=== PATIENT | female | born 1965 | race Caucasian/White ===

== ENCOUNTER → 2017-05-04 | Outpatient (CLI) | payer MEDICARE | END | disposition home or self-care (01) | LOC: CFH 12:53 | PROVIDERS: ATTEND Internal Medicine | DX: I07.1 Rheumatic tricuspid insufficiency (principal); I38 Endocarditis, valve unspecified; I10 Essential (primary) hypertension; E78.5 Hyperlipidemia, unspecified; R73.03 Prediabetes; Z87.891 Personal history of nicotine dependence | CPT/HCPCS: 93306 ==

== ENCOUNTER 2020-07-13 11:42 | Emergency (ER) | payer MEDICARE ==
[~2020-07-13] VITALS: Ht 170.2 cm; Wt 71.5 kg
[2020-07-13 12:46] LABS: BASOPHILS % (AUTO) 1 % (0-1); EOSINOPHILS % (AUTO) 1 % (1-7); LYMPHOCYTES % (AUTO) 23 % (22-44); MEAN CORPUSCULAR HEMOGLOBIN 31.6 pg (27.0-34.8); MEAN CORPUSCULAR HGB CONC 34.3 g/dL (32.4-35.8); MONOCYTES % (AUTO) 8 % (2-9); NEUTROPHILS % (AUTO) 69 % (42-75); PLATELET COUNT 284 x10^3/uL (130-400); RED BLOOD COUNT 4.75 x10^6/uL (3.82-5.3); RED CELL DISTRIBUTION WIDTH 13.4 % (9.6-15.2)
[2020-07-13 12:47] LABS: MD NO
[2020-07-13 12:57] LABS: ALBUMIN 4.7 g/dL (3.4-5.0); ANION GAP 15 mmol/L (5-15); CALCIUM 10.3 mg/dL (8.5-10.1); CHLORIDE 100 mmol/L (98-107)
[2020-07-13 13:00] LABS: ALANINE AMINOTRANSFERASE 56 U/L (12-78); ALKALINE PHOSPHATASE 64 U/L (45-117); BILIRUBIN,TOTAL 0.8 mg/dL (0.2-1.0); CREATININE 0.84 mg/dL (0.55-1.02); TOTAL PROTEIN 7.9 g/dL (6.4-8.2)
[2020-07-13 13:48] VITALS: BP 175/69
--- NOTE | 2020-07-13 14:18 | NUR ---
AIRCRAFT QUALITY CONTROL INSPECTOR: PT TO ROOM FROM LOBBY VIA W/C
[2020-07-13] MEDS ORDERED: MAGN296S67 PO (14:34)
[2020-07-13] MEDS ORDERED: METO-99 PO (14:37)
[2020-07-13] MEDS ORDERED: METF500T17 PO (14:43)
[2020-07-13] MEDS ORDERED: ASPI81TA45 PO (14:43)
[2020-07-13] MEDS ORDERED: ATOR40TA PO (14:44)
[2020-07-13] MEDS ORDERED: LISI-170 PO (14:44)
--- NOTE | 2020-07-13 15:12 | NUR ---
[facility] ENEMA GIVEN. PT SITTING ON COMMODE.
[2020-07-13] MEDS ORDERED: ONDANSETRON ODT 4 MG ONE (15:33)
[2020-07-13] MEDS ORDERED: ONDANSETRON ODT 4 MG PO ONE (16:00)
--- NOTE | 2020-07-13 16:49 | NUR ---
PT HAD GOOD BM RESULTS WITH ENEMA. DR. CAPELLAN NOTIFIED.
--- NOTE | 2020-07-13 18:16 | NUR ---
Patient given discharge instructions and they have confirmed that they understand the instructions. Patient ambulatory with steady gait.
== END 2020-07-13 18:17 | disposition home or self-care (01) ==
LOC: ED 12:12
DX: K59.00 Constipation, unspecified (principal); I10 Essential (primary) hypertension; E11.9 Type 2 diabetes mellitus without complications; E78.5 Hyperlipidemia, unspecified; R94.31 Abnormal electrocardiogram [ECG] [EKG]
CPT/HCPCS: 36415; 74021; 80053; 85025; 93005; 99285; Q0162

== ENCOUNTER 2020-08-04 23:55 | Observation (INO) | payer MEDICARE ==
[~2020-08-04] VITALS: Ht 170.2 cm; Wt 75.0 kg
[~2020-08-04 23:55] MED LIST: ASPI81TA45 PO; ATOR40TA PO; LISI-170 PO; MAGN296S67 PO; METF500T17 PO; METO-99 PO
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
[2020-08-05 00:02] VITALS: BP 165/79
[2020-08-05 00:37] LABS: BASOPHILS % (AUTO) 1 % (0-1); EOSINOPHILS % (AUTO) 2 % (1-7); LYMPHOCYTES % (AUTO) 21 % (22-44); MD NO; MEAN CORPUSCULAR HEMOGLOBIN 31.1 pg (27.0-34.8); MEAN CORPUSCULAR HGB CONC 34.6 g/dL (32.4-35.8); MEAN PLATELET VOLUME 7.2 fL (7.4-10.4); MONOCYTES % (AUTO) 6 % (2-9); NEUTROPHILS % (AUTO) 71 % (42-75); PLATELET COUNT 243 x10^3/uL (130-400); RED BLOOD COUNT 4.29 x10^6/uL (3.82-5.3); RED CELL DISTRIBUTION WIDTH 13.2 % (9.6-15.2)
[2020-08-05 00:48] LABS: ALBUMIN 4.3 g/dL (3.4-5.0); ANION GAP 12 mmol/L (5-15); CALCIUM 9.8 mg/dL (8.5-10.1); CHLORIDE 96 mmol/L (98-107); CREATININE 1.44 mg/dL (0.55-1.02); SALICYLATE LEVEL 3.1 mg/dL (2.8-20.0)
[2020-08-05] MEDS ORDERED: POTASSIUM CHLORIDE 20 MEQ TAB.ER.PRT PO ONE (01:00)
[2020-08-05 01:12] LABS: AMPHETAMINE SCREEN, URINE Negative (Negative); BARBITURATE SCREEN, URINE Negative (Negative); BENZODIAZEPINE SCREEN, URINE Negative (Negative); CANNABINOID SCREEN, URINE Positive (Negative); COCAINE SCREEN, URINE Negative (Negative); METHADONE SCREEN, URINE Negative (Negative); OPIATE SCREEN, URINE Negative (Negative)
--- NOTE | 2020-08-05 01:30 | NUR ---
REPORT FROM TIKA PRADO
--- NOTE | 2020-08-05 01:30 | NUR ---
Patient moved from room 40 to room 03. Patient sitting upright in bed talking to herself. Provided water. Patient has no complaints. Room secured, belongings locked in cabinet. Sitter outside. Report given to JOHAN Shah. Patient care transferred. Addendum: 08/05/20 at 0518 by [email or web address] Belongings on the back of [facility] when transported to room 03.
--- NOTE | 2020-08-05 02:30 | NUR ---
TELEPSYCH MD ASSESSING PATIENT
--- NOTE | 2020-08-05 03:03 | NUR ---
PROVIDED WITH FOOD/WATER UPDATED ON ESTIMATED POC SITTER WITHIN DIRECT LINE OF SITE
--- NOTE | 2020-08-05 03:10 | NUR ---
3E with no female beds at this time per Amrit Robert. Patient with Medicare insurance so therefore packet faxed to [facility], [facility], [facility], [facility], and [facility].
[2020-08-05] MEDS ORDERED: POTASSIUM CHLORIDE 20 MEQ TAB.ER.PRT ONE (04:04)
[2020-08-05] MEDS ORDERED: IBUPROFEN 600 MG TABLET ONE (04:12)
--- NOTE | 2020-08-05 05:06 | NUR ---
Report from JOHAN Shah. Pt sleeping in view of sitter, visible chest rise and fall. Pt has slippers, robe and jacket. 1 pt belonginng bag created and placed in sch locker.
== END 2020-08-05 05:40 | disposition home or self-care (01) ==
LOC: ED 08-05 02:52 → EDIP 08-05 03:11 → INTOOBSV 08-05 03:25 → EDIP 08-05 03:25 → UNDOADMOB 08-05 03:25 → UNDODISOB 08-05 05:40
PROVIDERS: ADMIT Student in an Organized Health Care Education/Training Program; ATTEND Student in an Organized Health Care Education/Training Program
DX: F23 Brief psychotic disorder (principal); F30.2 Manic episode, severe with psychotic symptoms; I10 Essential (primary) hypertension; E11.9 Type 2 diabetes mellitus without complications; E78.5 Hyperlipidemia, unspecified; E87.6 Hypokalemia; G90.50 Complex regional pain syndrome I, unspecified; N28.9 Disorder of kidney and ureter, unspecified; Z79.899 Other long term (current) drug therapy
CPT/HCPCS: 36415; 80048; 80299; 80307; 80320; 80329; 82040; 85025; 99284; G0378; G0480

== ENCOUNTER → 2020-10-17 | Outpatient (CLI) | payer MEDICARE ==
[~2020-10-17] MED LIST changes: +OMNIPAQUE 350 MG/ML, 150 ML BOTTLE ONE
== END | disposition home or self-care (01) ==
LOC: CFH 09:12
PROVIDERS: ATTEND Surgery Vascular Surgery
DX: I71.4 Abdominal aortic aneurysm, without rupture (principal); I70.1 Atherosclerosis of renal artery; I70.209 Unspecified atherosclerosis of native arteries of extremities, unspecified extremity; I70.0 Atherosclerosis of aorta
CPT/HCPCS: 75635; Q9967

== ENCOUNTER 2020-10-31 08:46 | Emergency (ER) | payer MEDICARE ==
[~2020-10-31] VITALS: Ht 170.2 cm; Wt 58.0 kg
[~2020-10-31 08:46] MED LIST changes: -OMNIPAQUE 350 MG/ML, 150 ML BOTTLE ONE
[2020-10-31 08:55] VITALS: BP 158/92
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
--- NOTE | 2020-10-31 09:39 | NUR ---
BREAKFAST TRAY PROVIDED, PATIENT SITTING IN GURNEY MUMBLING TO SELF, NADN, CALL LIGHT WITHIN REACH.
--- NOTE | 2020-10-31 10:04 | NUR ---
INFORMED PATIENT THAT CURTAIN NEEDS TO REMAIN OPEN, PATIENT CLOSED CURTAIN IN THIS RN'S FACE, EDUCATED PATIENT THAT WE NEED TO MAKE SURE SHE IS SAFE AND KEEP THE CURTAIN OPEN. PATIENT AGGRESSIVELY PULLED OPEN THE CURTAIN AND STATED "FINE KEEP THE FUCKING THING OPEN, EVERYONE IS NOSY, YOU AREN'T GOING TO DO ANYTHING TO HELP ME ANYWAYS, I'M IN FUCKING PAIN 24 HOURS A DAY." SITTER IN LINE OF SIGHT.
--- NOTE | 2020-10-31 10:16 | NUR ---
ERMD AT BEDSIDE FOR EVALUATION.
[2020-10-31] MEDS ORDERED: HALOPERIDOL 5 MG/ML IM STA (10:19)
[2020-10-31] MEDS ORDERED: DIPHENHYDRAMINE 50 MG/ML, 1ML ONE (10:24)
[2020-10-31] MEDS ORDERED: HALOPERIDOL 5 MG/ML ONE (10:24)
[2020-10-31] MEDS ORDERED: LORazepam 2 MG/ML, 1ML ONE (10:25)
[2020-10-31] MEDS ORDERED: LORazepam 2 MG/ML, 1ML IM ONE (10:30)
[2020-10-31] MEDS ORDERED: DIPHENHYDRAMINE 50 MG/ML, 1ML IM ONE (10:30)
--- NOTE | 2020-10-31 10:30 | NUR ---
PATIENT BECOMING AGITATED, SECURITY CALLED. PATIENT MEDICATED PER eMAR, SEARCH PLANNER AT BEDSIDE, LABS DRAWN, PATIENT GOING BETWEEN BEING TEARFUL AND AGITATION. PATIENT NOW ON L2K, SITTER IN LINE OF SIGHT.
[2020-10-31 10:35] LABS: BASOPHILS % (AUTO) 1 % (0-1); EOSINOPHILS % (AUTO) 1 % (1-7); LYMPHOCYTES % (AUTO) 15 % (22-44); MEAN CORPUSCULAR HEMOGLOBIN 31.7 pg (27.0-34.8); MEAN CORPUSCULAR HGB CONC 33.5 g/dL (32.4-35.8); MEAN PLATELET VOLUME 7.5 fL (7.4-10.4); MONOCYTES % (AUTO) 6 % (2-9); NEUTROPHILS % (AUTO) 78 % (42-75); PLATELET COUNT 246 x10^3/uL (130-400); RED BLOOD COUNT 4.19 x10^6/uL (3.82-5.3); RED CELL DISTRIBUTION WIDTH 13.3 % (9.6-15.2)
--- NOTE | 2020-10-31 10:38 | NUR ---
KAREN PSYCH MECHANICAL SOUND TECHNICIAN AT BEDSIDE FOR EVALUATION.
[2020-10-31 10:46] LABS: ALANINE AMINOTRANSFERASE 63 U/L (12-78); ALBUMIN 4.1 g/dL (3.4-5.0); ANION GAP 7 mmol/L (5-15); CALCIUM 9.1 mg/dL (8.5-10.1); CHLORIDE 107 mmol/L (98-107); SALICYLATE LEVEL 3.6 mg/dL (2.8-20.0)
[2020-10-31 10:48] LABS: ALKALINE PHOSPHATASE 61 U/L (45-117); BILIRUBIN,TOTAL 0.9 mg/dL (0.2-1.0); TOTAL PROTEIN 7.1 g/dL (6.4-8.2)
--- NOTE | 2020-10-31 11:20 | NUR ---
PATIENT RESTING IN GURNEY WITH EYES CLOSED, RESP EVEN AND UNLABORED, SUICIDE PRECAUTIONS IN PLACE, SITTER IN LINE OF SIGHT.
--- NOTE | 2020-10-31 11:23 | NUR ---
HOSPITAL BED ORDERED.
--- NOTE | 2020-10-31 12:12 | NUR ---
COVID SWAB COLLECTED FOR BHU AND WALKED TO LAB.
--- NOTE | 2020-10-31 12:35 | NUR ---
Safety meal tray provided.
--- NOTE | 2020-10-31 13:38 | NUR ---
PATIENT RESTING IN GURNEY WITH EYES CLOSED, RESP EVEN AND UNLABORED, SUICIDE PRECAUTIONS IN PLACE, SITTER IN LINE OF SIGHT.
[2020-10-31] MEDS ORDERED: POTASSIUM CHLORIDE 20 MEQ TAB.ER.PRT PO ONE (14:30)
--- NOTE | 2020-10-31 15:01 | NUR ---
PATIENT MOVED ONTO HOSPITAL BED, URINE COLLECTED AND SENT TO LAB. PATIENT EATING LUNCH, NADN, SITTER IN LINE OF SIGHT.
[2020-10-31 15:34] LABS: AMPHETAMINE SCREEN, URINE Negative (Negative); BARBITURATE SCREEN, URINE Negative (Negative); BENZODIAZEPINE SCREEN, URINE Negative (Negative); CANNABINOID SCREEN, URINE Positive (Negative); COCAINE SCREEN, URINE Negative (Negative); METHADONE SCREEN, URINE Negative (Negative); OPIATE SCREEN, URINE Negative (Negative)
--- NOTE | 2020-10-31 16:00 | NUR ---
LATE ENTRY DUE TO PATIENT CARE: REPORT GIVEN TO JOHAN ARZATE FOR TRANSFER OF PATIENT CARE TO [facility].
[2020-10-31] MEDS ORDERED: POTASSIUM CHLORIDE 20 MEQ TAB.ER.PRT ONE (16:20)
--- NOTE | 2020-10-31 16:42 | NUR ---
PATIENT TRANSFERRED TO BHU VIA WHEELCHAIR IN STABLE CONDITION WITH AQUACULTURAL WORKER SUPERVISOR, ALL PATIENT BELONGINGS TAKEN TO FLOOR WITH PATIENT.
[2020-11-01] MEDS ORDERED: AMOX1TAB12 BC (09:09)
[2020-11-01] MEDS ORDERED: [UNRECOGNIZED DRUG - CODE] PO (09:09)
[2020-11-01] MEDS ORDERED: ALBU0.63 NEB (09:09)
[2020-11-01] MEDS ORDERED: EZET10TA70 PO (09:09)
[2020-11-01] MEDS ORDERED: AMLO-150 PO (09:12)
[2020-11-01] MEDS ORDERED: HYDR25TA6 PO (09:12)
[2020-11-01] MEDS ORDERED: DULO30CA2 PO (09:12)
== END 2020-10-31 16:44 ==
LOC: ED 10:17 → UNDOADMIN 13:54 → EDIP 13:54 → ED 16:38
DX: F22 Delusional disorders (principal); Z20.822 Contact with and (suspected) exposure to COVID-19; F28 Other psychotic disorder not due to a substance or known physiological condition; R00.0 Tachycardia, unspecified; I10 Essential (primary) hypertension; E11.9 Type 2 diabetes mellitus without complications
CPT/HCPCS: 36415; 80053; 80299; 80307; 80320; 80329; 85025; 87426; 96372; 99285; J1200; J1630; J2060; 99284; G0480

== ENCOUNTER 2020-10-31 14:04 | Inpatient (IN) | payer MEDICARE ==
[~2020-10-31] VITALS: Ht 170.2 cm; Wt 58.7 kg
[2020-10-31] MEDS ORDERED: BISACODYL 10 MG SUPP PR PRN (16:00)
[2020-10-31] MEDS ORDERED: POLYETHYLENE GLYCOL 17 GM PACKET PO PRN (16:00)
[2020-10-31] MEDS ORDERED: PLEASE ENTER HEIGHT AND WEIGHT MC SCH (17:00)
[2020-10-31] MEDS ORDERED: DIPHENHYDRAMINE 25 MG CAPSULE PO PRN (17:00)
[2020-10-31 17:27] LABS: MICROSCOPIC AUTO
[2020-10-31] MEDS ORDERED: HALOPERIDOL 5 MG TABLET ONE (17:28)
[2020-10-31] MEDS: HALOPERIDOL 5 MG TABLET PO PRN (17:37)
[2020-10-31 17:39] VITALS: BP 142/87
[2020-10-31 19:25] VITALS: BP 150/83
[2020-11-01] MEDS: ACETAMINOPHEN 325 MG TABLET PO PRN ×2 (02:19→15:09)
[2020-11-01 07:08] LABS: CHOL/HDL RATIO 3.3; FREE T4 (FREE THYROXINE) 1.13 ng/dL (0.76-1.46)
[2020-11-01 07:49] VITALS: BP 165/82
[2020-11-01] MEDS ORDERED: EZET10TA70 PO (09:09)
[2020-11-01] MEDS ORDERED: ALBU0.63 NEB (09:09)
[2020-11-01] MEDS ORDERED: [UNRECOGNIZED DRUG - CODE] PO (09:09)
[2020-11-01] MEDS ORDERED: AMOX1TAB12 BC (09:09)
[2020-11-01] MEDS ORDERED: DULO30CA2 PO (09:12)
[2020-11-01] MEDS ORDERED: AMLO-150 PO (09:12)
[2020-11-01] MEDS ORDERED: HYDR25TA6 PO (09:12)
[2020-11-01 09:24] LABS: BASOPHILS % (AUTO) 1 % (0-1); EOSINOPHILS % (AUTO) 2 % (1-7); LYMPHOCYTES % (AUTO) 30 % (22-44); MEAN CORPUSCULAR HEMOGLOBIN 31.9 pg (27.0-34.8); MEAN CORPUSCULAR HGB CONC 33.3 g/dL (32.4-35.8); MEAN PLATELET VOLUME 7.7 fL (7.4-10.4); MONOCYTES % (AUTO) 7 % (2-9); NEUTROPHILS % (AUTO) 60 % (42-75); PLATELET COUNT 233 x10^3/uL (130-400); RED BLOOD COUNT 4.39 x10^6/uL (3.82-5.3); RED CELL DISTRIBUTION WIDTH 13.5 % (9.6-15.2)
[2020-11-01] MEDS: AMOXICILLIN/CLAV 875-125MG TABLET PO SCH ×2 (09:54→20:41)
[2020-11-01] MEDS: ASPIRIN 81 MG TABLET EC PO SCH (09:54)
[2020-11-01] MEDS: LISINOPRIL 20 MG TABLET PO SCH (09:54)
[2020-11-01] MEDS: ONDANSETRON ODT 4 MG PO PRN (10:22)
[2020-11-01] MEDS: CHLORHEXIDINE 15 ML UDC MM SCH ×3 (10:26→20:40)
[2020-11-01 10:40] LABS: ANION GAP 3 mmol/L (5-15); CALCIUM 9.2 mg/dL (8.5-10.1); CHLORIDE 107 mmol/L (98-107); CREATININE 0.71 mg/dL (0.55-1.02)
[2020-11-01] MEDS ORDERED: POTASSIUM CHLORIDE 20 MEQ TAB.ER.PRT PO ONE (12:00)
[2020-11-01] MEDS: metFORMIN 500 MG TABLET PO SCH (16:32)
[2020-11-01 18:53] VITALS: BP 144/69
[2020-11-01] MEDS ORDERED: METOPROLOL TARTRATE 50 MG TAB ONE (20:31)
[2020-11-01] MEDS: CARBAMAZEPINE XR 200 MG TABLET PO SCH (20:41)
[2020-11-01] MEDS: RISPERIDONE 0.5 MG TABLET PO SCH (20:41)
[2020-11-01] MEDS: METOPROLOL TARTRATE 100 MG TAB PO SCH (20:41)
[2020-11-01] MEDS: EZETIMIBE 10 MG TABLET PO SCH (20:41)
[2020-11-02 07:10] VITALS: BP 155/68
[2020-11-02] MEDS: METOPROLOL TARTRATE 100 MG TAB PO SCH ×2 (09:00→21:18)
[2020-11-02] MEDS ORDERED: METOPROLOL TARTRATE 50 MG TAB ONE (09:09)
[2020-11-02] MEDS: AMOXICILLIN/CLAV 875-125MG TABLET PO SCH ×2 (09:14→21:19)
[2020-11-02] MEDS: metFORMIN 500 MG TABLET PO SCH ×2 (09:14→17:16)
[2020-11-02] MEDS: ASPIRIN 81 MG TABLET EC PO SCH (09:15)
[2020-11-02] MEDS: LISINOPRIL 20 MG TABLET PO SCH (09:16)
[2020-11-02] MEDS: CARBAMAZEPINE XR 200 MG TABLET PO SCH ×2 (09:17→21:19)
[2020-11-02] MEDS: RISPERIDONE 0.5 MG TABLET PO SCH ×2 (09:17→21:19)
[2020-11-02] MEDS: CHLORHEXIDINE 15 ML UDC MM SCH ×3 (09:18→21:18)
[2020-11-02 19:25] VITALS: BP 131/76
[2020-11-02] MEDS: EZETIMIBE 10 MG TABLET PO SCH (21:19)
[2020-11-03 07:35] VITALS: BP 144/72
[2020-11-03] MEDS ORDERED: METOPROLOL TARTRATE 50 MG TAB ONE (08:16)
[2020-11-03] MEDS: METOPROLOL TARTRATE 100 MG TAB PO SCH ×2 (09:00→20:05)
[2020-11-03] MEDS: CARBAMAZEPINE XR 200 MG TABLET PO SCH ×2 (09:13→20:06)
[2020-11-03] MEDS: AMOXICILLIN/CLAV 875-125MG TABLET PO SCH ×2 (09:13→20:05)
[2020-11-03] MEDS: RISPERIDONE 0.5 MG TABLET PO SCH ×2 (09:13→20:06)
[2020-11-03] MEDS: ASPIRIN 81 MG TABLET EC PO SCH (09:13)
[2020-11-03] MEDS: LISINOPRIL 20 MG TABLET PO SCH (09:13)
[2020-11-03] MEDS: metFORMIN 500 MG TABLET PO SCH ×2 (09:13→17:06)
[2020-11-03] MEDS: CHLORHEXIDINE 15 ML UDC MM SCH ×3 (09:14→20:08)
[2020-11-03] MEDS ORDERED: NICOTINE 14MG/24 HR PATCH.TD24 ONE (15:21)
[2020-11-03] MEDS: NICOTINE 14MG/24 HR PATCH.TD24 TD SCH (15:25)
[2020-11-03 19:24] VITALS: BP 138/82
[2020-11-03] MEDS: EZETIMIBE 10 MG TABLET PO SCH (20:05)
[2020-11-04 07:44] VITALS: BP 143/81
[2020-11-04] MEDS: LISINOPRIL 20 MG TABLET PO SCH (08:54)
[2020-11-04] MEDS: AMOXICILLIN/CLAV 875-125MG TABLET PO SCH ×2 (08:54→20:19)
[2020-11-04] MEDS: metFORMIN 500 MG TABLET PO SCH ×2 (08:54→16:46)
[2020-11-04] MEDS: METOPROLOL TARTRATE 100 MG TAB PO SCH ×2 (08:54→20:19)
[2020-11-04] MEDS: CARBAMAZEPINE XR 200 MG TABLET PO SCH ×2 (08:54→20:19)
[2020-11-04] MEDS: ASPIRIN 81 MG TABLET EC PO SCH (08:55)
[2020-11-04] MEDS: RISPERIDONE 0.5 MG TABLET PO SCH ×2 (08:55→20:19)
[2020-11-04] MEDS: CHLORHEXIDINE 15 ML UDC MM SCH ×3 (09:00→20:19)
[2020-11-04] MEDS: NICOTINE 14MG/24 HR PATCH.TD24 TD SCH (15:05)
[2020-11-04 19:25] VITALS: BP 142/81
[2020-11-04] MEDS: EZETIMIBE 10 MG TABLET PO SCH (20:19)
[2020-11-05] MEDS: DOCUSATE 100 MG CAPSULE PO PRN ×2 (04:21→08:21)
[2020-11-05 07:25] VITALS: BP 130/82
[2020-11-05] MEDS: METOPROLOL TARTRATE 100 MG TAB PO SCH ×2 (08:20→20:38)
[2020-11-05] MEDS: CARBAMAZEPINE XR 200 MG TABLET PO SCH ×2 (08:20→20:37)
[2020-11-05] MEDS: ASPIRIN 81 MG TABLET EC PO SCH (08:20)
[2020-11-05] MEDS: LISINOPRIL 20 MG TABLET PO SCH (08:21)
[2020-11-05] MEDS: RISPERIDONE 0.5 MG TABLET PO SCH ×2 (08:21→20:39)
[2020-11-05] MEDS: metFORMIN 500 MG TABLET PO SCH ×2 (08:21→18:28)
[2020-11-05] MEDS: NICOTINE 14MG/24 HR PATCH.TD24 TD SCH (08:21)
[2020-11-05] MEDS: AMOXICILLIN/CLAV 875-125MG TABLET PO SCH ×2 (08:21→20:38)
[2020-11-05] MEDS: CHLORHEXIDINE 15 ML UDC MM SCH ×3 (08:21→20:37)
[2020-11-05 19:27] VITALS: BP 144/67
[2020-11-05 19:42] VITALS: BP 132/79
[2020-11-05] MEDS: EZETIMIBE 10 MG TABLET PO SCH (20:37)
[2020-11-06 07:25] VITALS: BP 154/79
[2020-11-06] MEDS: CARBAMAZEPINE XR 200 MG TABLET PO SCH ×2 (08:43→20:34)
[2020-11-06] MEDS: ASPIRIN 81 MG TABLET EC PO SCH (08:43)
[2020-11-06] MEDS: LISINOPRIL 20 MG TABLET PO SCH (08:43)
[2020-11-06] MEDS: metFORMIN 500 MG TABLET PO SCH ×2 (08:43→16:46)
[2020-11-06] MEDS: AMOXICILLIN/CLAV 875-125MG TABLET PO SCH ×2 (08:43→20:34)
[2020-11-06] MEDS: RISPERIDONE 0.5 MG TABLET PO SCH ×2 (08:43→20:34)
[2020-11-06] MEDS: METOPROLOL TARTRATE 100 MG TAB PO SCH ×2 (08:43→20:33)
[2020-11-06] MEDS: NICOTINE 14MG/24 HR PATCH.TD24 TD SCH (08:44)
[2020-11-06] MEDS: ACETAMINOPHEN 325 MG TABLET PO PRN ×2 (08:46→20:38)
[2020-11-06] MEDS: CHLORHEXIDINE 15 ML UDC MM SCH ×3 (08:46→20:34)
[2020-11-06] MEDS: HALOPERIDOL 5 MG TABLET PO PRN (08:46)
[2020-11-06] MEDS: ONDANSETRON ODT 4 MG PO PRN (12:58)
[2020-11-06 19:52] VITALS: BP 132/62
[2020-11-06] MEDS: EZETIMIBE 10 MG TABLET PO SCH (20:33)
[2020-11-07 07:18] VITALS: BP 128/70
[2020-11-07] MEDS: NICOTINE 14MG/24 HR PATCH.TD24 TD SCH (08:47)
[2020-11-07] MEDS: CHLORHEXIDINE 15 ML UDC MM SCH (08:47)
[2020-11-07] MEDS: CARBAMAZEPINE XR 200 MG TABLET PO SCH (08:48)
[2020-11-07] MEDS: METOPROLOL TARTRATE 100 MG TAB PO SCH (08:48)
[2020-11-07] MEDS: metFORMIN 500 MG TABLET PO SCH (08:48)
[2020-11-07] MEDS: AMOXICILLIN/CLAV 875-125MG TABLET PO SCH (08:49)
[2020-11-07] MEDS: RISPERIDONE 0.5 MG TABLET PO SCH (08:49)
[2020-11-07] MEDS: LISINOPRIL 20 MG TABLET PO SCH (08:49)
[2020-11-07] MEDS: ASPIRIN 81 MG TABLET EC PO SCH (09:24)
[2020-11-07] MEDS ORDERED: CARB200T2 PO (09:46)
[2020-11-07] MEDS ORDERED: RISP0.5T62 PO (09:46)
== END 2020-11-07 11:15 | disposition home or self-care (01) | DRG 885 ==
LOC: 3E 16:50
PROVIDERS: ADMIT Psychiatry & Neurology Psychosomatic Medicine; ATTEND Psychiatry & Neurology Psychosomatic Medicine
DX: F31.64 Bipolar disorder, current episode mixed, severe, with psychotic features (principal); I11.0 Hypertensive heart disease with heart failure; I50.32 Chronic diastolic (congestive) heart failure; E11.9 Type 2 diabetes mellitus without complications; G89.29 Other chronic pain; M54.5 Low back pain; F17.210 Nicotine dependence, cigarettes, uncomplicated; K05.6 Periodontal disease, unspecified; D72.829 Elevated white blood cell count, unspecified; E87.6 Hypokalemia; T50.2X5A Adverse effect of carbonic-anhydrase inhibitors, benzothiadiazides and other diuretics, initial encounter; I25.10 Atherosclerotic heart disease of native coronary artery without angina pectoris; E78.5 Hyperlipidemia, unspecified; R74.01 Elevation of levels of liver transaminase levels; Y92.89 Other specified places as the place of occurrence of the external cause; Z91.83 Wandering in diseases classified elsewhere; Z82.3 Family history of stroke; Z81.8 Family history of other mental and behavioral disorders; Z79.82 Long term (current) use of aspirin; Z79.84 Long term (current) use of oral hypoglycemic drugs; Z79.899 Other long term (current) drug therapy
CPT/HCPCS: 36415; 71045; 80048; 80061; 81001; 83735; 84439; 84443; 85025; 87086; 93005; Q0162

== ENCOUNTER 2020-11-14 00:44 | Emergency (ER) | payer MEDICARE ==
[~2020-11-14] VITALS: Ht 170.2 cm; Wt 59.0 kg
[~2020-11-14 00:44] MED LIST changes: +ALBU0.63 NEB; +AMLO-150 PO; +AMOX1TAB12 BC; +CARB200T2 PO; +DULO30CA2 PO; +EZET10TA70 PO; +HYDR25TA6 PO; +RISP0.5T62 PO; +[UNRECOGNIZED DRUG - CODE] PO
--- NOTE | 2020-11-14 01:04 | NUR ---
pt presents to the ed with leg pain. pt states she was here 2 weeks ago and was given a shot in her leg and it has hurt ever since. pt states pain is running up to her back and down to her foot. pt also states that she needs her vascular surgeron called, Dr. Randa Sanz. pt also states she is in pain all over. pt in gown, resting on gurney, and placed on continuous monitoring.
[2020-11-14 01:57] LABS: BASOPHILS % (AUTO) 1 % (0-1); EOSINOPHILS % (AUTO) 2 % (1-7); LYMPHOCYTES % (AUTO) 23 % (22-44); MEAN CORPUSCULAR HEMOGLOBIN 32.1 pg (27.0-34.8); MEAN CORPUSCULAR HGB CONC 34.1 g/dL (32.4-35.8); MEAN PLATELET VOLUME 8.3 fL (7.4-10.4); MONOCYTES % (AUTO) 7 % (2-9); NEUTROPHILS % (AUTO) 68 % (42-75); PLATELET COUNT 225 x10^3/uL (130-400); RED BLOOD COUNT 4.02 x10^6/uL (3.82-5.3)
[2020-11-14] MEDS ORDERED: ONDANSETRON 2MG/ML, 2ML ONE (01:57)
[2020-11-14] MEDS ORDERED: MORPHINE SULFATE 4 MG/ML, 1ML ONE (01:57)
[2020-11-14] MEDS ORDERED: ONDANSETRON 2MG/ML, 2ML IVPush ONE (02:00)
[2020-11-14] MEDS ORDERED: MORPHINE SULFATE 4 MG/ML, 1ML IVPush PRN (02:00)
--- NOTE | 2020-11-14 02:09 | NUR ---
break rn: pt medicated per jun, nad, lights dimmed for comfort, Patient is resting comfortably in bed. Bed in lowest, rails engaged, call light on lap. Vital Signs within normal limits. WCTM.
[2020-11-14 02:10] LABS: ALANINE AMINOTRANSFERASE 35 U/L (12-78); ALBUMIN 3.7 g/dL (3.4-5.0); ANION GAP 5 mmol/L (5-15); CHLORIDE 105 mmol/L (98-107); CREATININE 1.07 mg/dL (0.55-1.02)
[2020-11-14 02:12] LABS: ALKALINE PHOSPHATASE 78 U/L (45-117); BILIRUBIN,TOTAL 0.2 mg/dL (0.2-1.0)
[2020-11-14 03:07] VITALS: BP 125/54
--- NOTE | 2020-11-14 03:23 | NUR ---
pt resting on gurney, denies needs at this time, erp at bedside
--- NOTE | 2020-11-14 03:45 | NUR ---
Patient given discharge instructions and they have confirmed that they understand the instructions. Patient ambulatory with steady gait.
== END 2020-11-14 04:02 | disposition home or self-care (01) ==
LOC: ED 03:30
DX: I70.213 Atherosclerosis of native arteries of extremities with intermittent claudication, bilateral legs (principal); F41.1 Generalized anxiety disorder; F31.9 Bipolar disorder, unspecified; I10 Essential (primary) hypertension; E11.9 Type 2 diabetes mellitus without complications; E78.5 Hyperlipidemia, unspecified; F17.200 Nicotine dependence, unspecified, uncomplicated
CPT/HCPCS: 36415; 80053; 85025; 96374; 96375; 99284; J2270; J2405